=== PATIENT | male | born 1985 | race African-American/Black ===

== ENCOUNTER 2020-04-11 22:41 | Emergency (ER) | payer SELFPAY ==
[~2020-04-11] VITALS: Ht 172.7 cm; Wt 114.0 kg
[2020-04-11 22:42] VITALS: BP 166/98
[2020-04-11] MEDS ORDERED: AMLO25TA PO (22:54)
== END 2020-04-11 23:47 | disposition left against medical advice (07) ==
LOC: M ED 22:41
DX: Z53.21 Procedure and treatment not carried out due to patient leaving prior to being seen by health care provider (principal)